=== PATIENT | female | born 1990 | race Caucasian/White ===

== ENCOUNTER → 2024-01-07 18:16 | Outpatient (REF) | payer BC, SELFPAY | LOC: RAD 18:16 | PROVIDERS: ATTENDING PHYSICIAN Nurse Practitioner | DX: J45.41 Moderate persistent asthma with (acute) exacerbation (principal) | CPT/HCPCS: 71046 ==

== ENCOUNTER 2024-09-26 11:11 | Outpatient (RCR) | payer BC, SELFPAY | END 2024-09-26 23:59 | disposition home or self-care (01) | LOC: RST 11:11 | PROVIDERS: ATTENDING PHYSICIAN Physical Medicine & Rehabilitation; FAMILY PHYSICIAN Internal Medicine | DX: S06.5X0S Traumatic subdural hemorrhage without loss of consciousness, sequela (principal); R13.11 Dysphagia, oral phase; R47.1 Dysarthria and anarthria | CPT/HCPCS: 92507; 92522; 92526; 92610; 97010; 97110; 97112; 97140; 97163; 97167; 97530; 97535; 97537 ==

== ENCOUNTER 2024-10-06 17:12 | Outpatient (RCR) | payer BC, SELFPAY | END 2024-10-06 23:59 | disposition home or self-care (01) | LOC: RST 17:12 | PROVIDERS: ATTENDING PHYSICIAN Physical Medicine & Rehabilitation; FAMILY PHYSICIAN Internal Medicine | DX: S06.5X0S Traumatic subdural hemorrhage without loss of consciousness, sequela (principal); R13.11 Dysphagia, oral phase; R47.1 Dysarthria and anarthria | CPT/HCPCS: 97010; 97110; 97112; 97116; 97537 ==